=== PATIENT | female | born 1965 | race Caucasian/White ===

== ENCOUNTER → 2018-04-29 | Outpatient (CLI) | payer MEDICARE, OTHER ==
[2018-05-01 15:08] LABS: HPV 16 Negative (Negative); HPV 18 Negative (Negative); HPV OTHER HR TYPES Negative (Negative)
== END | disposition home or self-care (01) ==
LOC: LAB 16:46 → LAB SHORT 16:46
PROVIDERS: Obstetrics & Gynecology
DX: Z01.419 Encounter for gynecological examination (general) (routine) without abnormal findings (principal)
CPT/HCPCS: 87624; G0123

== ENCOUNTER → 2018-05-26 | Outpatient (CLI) | payer MEDICARE, OTHER | END | disposition home or self-care (01) | LOC: LAB 08:00 → LAB SHORT 08:00 | DX: E11.51 Type 2 diabetes mellitus with diabetic peripheral angiopathy without gangrene (principal); E78.5 Hyperlipidemia, unspecified; I10 Essential (primary) hypertension | CPT/HCPCS: 82043 ==

== ENCOUNTER → 2019-05-18 | Outpatient (CLI) | payer MEDICARE, OTHER ==
[2019-05-20 13:07] LABS: HPV 16 Negative (Negative); HPV 18 Negative (Negative); HPV OTHER HR TYPES Negative (Negative)
== END | disposition home or self-care (01) ==
LOC: LAB SHORT 16:06 → LAB 16:06
PROVIDERS: Obstetrics & Gynecology
DX: Z01.419 Encounter for gynecological examination (general) (routine) without abnormal findings (principal)
CPT/HCPCS: 87624; G0123

== ENCOUNTER → 2021-05-01 | Outpatient (CLI) | payer MEDICARE, OTHER | LOC: LAB SHORT 11:09 → LAB 11:09 | DX: L98.9 Disorder of the skin and subcutaneous tissue, unspecified (principal); L22 Diaper dermatitis | CPT/HCPCS: 88305; 88312 ==

== ENCOUNTER → 2022-12-10 | Outpatient (CLI) | payer MEDICARE, OTHER | END | disposition home or self-care (01) | LOC: LAB 08:50 → LAB SHORT 08:50 | DX: L08.0 Pyoderma (principal) | CPT/HCPCS: 87070; 87205 ==

== ENCOUNTER → 2023-03-10 | Outpatient (CLI) | payer MEDICARE, OTHER | LOC: LAB SHORT 16:45 → LAB 16:45 | DX: N39.0 Urinary tract infection, site not specified (principal) | CPT/HCPCS: 87086 ==

== ENCOUNTER → 2024-01-07 | Outpatient (CLI) | payer MEDICARE, OTHER | END | disposition home or self-care (01) | LOC: LAB 13:13 → LAB SHORT 13:13 | DX: R35.0 Frequency of micturition (principal); R30.0 Dysuria ==

== ENCOUNTER 2024-11-17 16:18 | Emergency (ER) | payer OTHER ==
[~2024-11-17] VITALS: Ht 172.7 cm; Wt 73.9 kg
[~2024-11-17 16:18] MED LIST: ASPI81CH PO; ATOR40TA PO; Acetaminophen650 M1 PO; CIPR500 PO; FARXIGA10 MG PO; FISH OIL 1,2001 EAC7; FOLI1 PO; Fenofibrate134 MG PO; INSULIN LI100 UNIT/5 SC; IRON18 MG; LEVEMIR100 UNIT/1 SC; LISI20 PO; METFORMIN HCL500 M3 PO; METHOTREXATE2.510 PO; MIRALAX17 GM PO; MOUNJARO5 MG/0.5 M SC; MOUNJARO7.5 MG/0.5 SC; TAMS.4ER PO; TRESIBA FL100 UNIT/2 SC; TRULICITY4.5 MG/0.5 SC; VISBIOME 112.51 EACH PO
[2024-11-17 16:34] VITALS: BP 125/74
[2024-11-17] MEDS ORDERED: Ketorolac Tromethamine 15mg Vial IM ONE (17:10)
[2024-11-17] MEDS ORDERED: HYDROcodone 5-APAP 325 TAB PO ONE (17:10)
[2024-11-17] MEDS ORDERED: Ondansetron 4 MG SoluTab SL ONE (17:35)
[2024-11-17] MEDS ORDERED: RX Prepack 6 Tabs Oxycodone 5mg UD ONE (18:40)
[2024-11-17] MEDS ORDERED: Percocet 5-3251 EACH PO (18:48)
== END 2024-11-17 18:55 | disposition home or self-care (01) ==
LOC: ER 16:18
DX: S42.211A Unspecified displaced fracture of surgical neck of right humerus, initial encounter for closed fracture (principal); S42.291A Other displaced fracture of upper end of right humerus, initial encounter for closed fracture; I10 Essential (primary) hypertension; E11.9 Type 2 diabetes mellitus without complications; Z79.4 Long term (current) use of insulin; Z79.84 Long term (current) use of oral hypoglycemic drugs; Z79.82 Long term (current) use of aspirin; Z79.899 Other long term (current) drug therapy; W01.0XXA Fall on same level from slipping, tripping and stumbling without subsequent striking against object, initial encounter
CPT/HCPCS: 73030; 96372; 99283-25; A9270; J1885

== ENCOUNTER → 2025-03-28 | Outpatient (CLI) | payer OTHER ==
[~2025-03-28] MED LIST changes: +Percocet 5-3251 EACH PO
== END ==
LOC: LAB SHORT 14:30 → LAB 14:30
DX: R21 Rash and other nonspecific skin eruption (principal)
CPT/HCPCS: 88312

== ENCOUNTER 2025-07-14 20:49 | Emergency (ER) | payer OTHER | END 2025-07-15 02:56 | disposition home or self-care (01) | LOC: ER 20:49 | DX: N20.0 Calculus of kidney (principal); E11.65 Type 2 diabetes mellitus with hyperglycemia; R82.71 Bacteriuria; Z79.4 Long term (current) use of insulin; Z79.899 Other long term (current) drug therapy ==

== ENCOUNTER 2025-07-29 19:35 | Emergency (ER) | payer OTHER ==
[~2025-07-29] VITALS: Ht 172.7 cm; Wt 71.7 kg
[~2025-07-29 19:35] MED LIST changes: +CEPH500 PO
[2025-07-29 20:10] VITALS: BP 161/83
[2025-07-29 20:56] LABS: Source, Urine Clean Catch
[2025-07-29 21:05] LABS: Bilirubin, Urine Neg (Neg); Color, Urine Yellow (P-Yellow); Glucose Qualitative, Urine 4+ (Neg); Ketones, Urine Neg (Neg); Leukocyte Esterase, Urine 3+ (Neg); Protein, Urine Neg (Neg); Specific Gravity, Urine 1.010 (1.003-1.022); Urobilinogen, Urine NORM (Normal)
[2025-07-29 21:18] LABS: Red Blood Cells, Urine 0-2 /hpf (0-2)
[2025-07-29] MEDS ORDERED: NITR100CA PO (21:34)
[2025-07-29] MEDS ORDERED: Nitrofurantoin/Nitrofuran Mac 100 MG Cap PO ONE (21:35)
[2025-07-29] MEDS ORDERED: Diflucan150 MG PO (21:39)
== END 2025-07-29 21:43 | disposition home or self-care (01) ==
LOC: ER 19:35
PROVIDERS: Student in an Organized Health Care Education/Training Program
DX: B37.31 Acute candidiasis of vulva and vagina (principal); N39.0 Urinary tract infection, site not specified; Z79.82 Long term (current) use of aspirin; Z79.899 Other long term (current) drug therapy; Z79.4 Long term (current) use of insulin; I10 Essential (primary) hypertension; E11.9 Type 2 diabetes mellitus without complications
CPT/HCPCS: 81001; 87086; 99283; A9270